=== PATIENT | female | born 1985 | race Caucasian/White ===

== ENCOUNTER 2020-11-04 12:16 | Outpatient (CLI) | payer OTHER ==
[2020-11-04 14:43] LABS: SARS-CoV-2 NAA Rapid Test Not Detected (NotDetected)
== END 2020-11-04 12:17 | disposition home or self-care (01) ==
LOC: CSHLAB 12:16
PROVIDERS: ATTEND Podiatrist Foot & Ankle Surgery
DX: Z20.822 Contact with and (suspected) exposure to COVID-19 (principal); M72.2 Plantar fascial fibromatosis
CPT/HCPCS: U0002

== ENCOUNTER 2020-11-05 09:13 | Day surgery (SDC) | payer OTHER ==
[2020-11-04 11:27] VITALS: BMI 36.6
[2020-11-05] MEDS ORDERED: Lidocaine 1% MPF 2 ML VIAL ONE (09:58)
[2020-11-05] MEDS ORDERED: Neomycin-Polymyxin 1 ML AMP ONE (10:14)
[2020-11-05] MEDS ORDERED: Bupivacaine PF 0.5% 30 ML VIAL ONE (10:14)
[2020-11-05] MEDS ORDERED: Acetaminophen 500 MG TAB ONE (11:09)
[2020-11-05] MEDS ORDERED: Midazolam HCl 2 mg/2 ml Vial ONE ×2 (11:10→11:34)
[2020-11-05] MEDS ORDERED: PROPOFOL 20 ML ONE (11:34)
[2020-11-05] MEDS ORDERED: Fentanyl 100 MCG/2 ML VIAL ONE (11:34)
[2020-11-05] MEDS ORDERED: Lidocaine 1% PF 5 ML VIAL ONE (11:37)
[2020-11-05] MEDS ORDERED: Dexamethasone 20 MG/5 ML VIAL ONE (11:37)
[2020-11-05] MEDS ORDERED: Ondansetron PF 4 MG/2 ML Vial ONE (11:37)
== END 2020-11-05 14:05 | disposition home or self-care (01) ==
LOC: CSHSDC 09:13
PROVIDERS: ATTEND Podiatrist Foot & Ankle Surgery
PROC: 0JNQ0ZZ Release Right Foot Subcutaneous Tissue and Fascia, Open Approach (ICD-10-PCS; principal; 2020-11-05)
DX: M72.2 Plantar fascial fibromatosis (principal); M77.31 Calcaneal spur, right foot; Z20.822 Contact with and (suspected) exposure to COVID-19
CPT/HCPCS: J1100; J2250; J2405; J2704; J3010; J3490; S0020; U0002